=== PATIENT | male | born 1985 | race Caucasian/White ===

== ENCOUNTER → 2016-12-21 | Outpatient (CLI) | payer MEDICAID ==
[~2016-12-21] MED LIST: BACL10TA PO; CELE1CAP8 PO; DIAZ5TAB PO; MELO-1 PO; NAPR1TAB34 PO; NAPR550T3 PO; OXYC1TAB63 PO; PRED10PA2 PO; TIZA2TAB PO
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
== END ==
LOC: HEEG 06:08
PROVIDERS: ATTEND Family Medicine
DX: R56.9 Unspecified convulsions (principal)
CPT/HCPCS: 95819